=== PATIENT | male | born 1950 | race American Indian/Alaskan Native ===

== ENCOUNTER 2017-03-11 12:50 | Outpatient (CLI) | payer BC ==
[2017-03-11 14:03] LABS: Blood Urea Nitrogen 12 mg/dL (9-20)
--- NOTE | 2017-03-11 15:24 | Cat Scan Report ---
CT NECK WITH CONTRAST: HISTORY: Neck mass. TECHNIQUE: Helical CT following IV contrast. Sagittal and coronal reformatted images. FINDINGS: The parotid and submandibular glands are normal. The carotid sheaths are intact. There is no evidence of adenopathy within the neck. The glottic structures are normal. The airway is patent. Strap musculature is unremarkable. Hyoid bone and thyroid cartilage are intact. IMPRESSION: Unremarkable CT neck. No suspicious mass or adenopathy is identified.
--- NOTE | 2017-03-11 15:26 | Cat Scan Report ---
CT CHEST WITH CONTRAST: HISTORY: Mass. COMPARISON: none. TECHNIQUE: Helical CT in 1.25mm intervals following IV contrast. Sagittal and coronal reformatted images. FINDINGS: Thyroid gland: The right thyroid lobe is normal. The left thyroid lobe is mildly enlarged with an isodense nodule projecting from the inferior pole measuring up to 4.2 cm in maximum diameter. This probably represents a nodule or substernal goiter. No malignant characteristics are appreciated. Tracheobronchial tree: Normal. Esophagus: Normal. Heart: Borderline to mild cardiomegaly. Pericardium: Normal. Mediastinum: Normal. Lung Woody: Normal. Pleural Spaces: Normal. Musculoskeletal: Normal. IMPRESSION: Left thyroid nodule or substernal goiter as described. Please note this is likely an accessible to CT guided or ultrasound-guided biopsy due to location. Borderline to mild cardiomegaly. No suspicious mass or adenopathy is identified.
== END 2017-03-11 12:51 | disposition home or self-care (01) ==
LOC: CT 12:50
PROVIDERS: ATTEND Internal Medicine
DX: E04.9 Nontoxic goiter, unspecified (principal); R22.1 Localized swelling, mass and lump, neck; R22.2 Localized swelling, mass and lump, trunk
CPT/HCPCS: 36415; 70491; 71260; 82565; 84520; Q9967

== ENCOUNTER 2017-09-01 13:44 | Outpatient (CLI) | payer BC ==
--- NOTE | 2017-09-03 10:57 | Magnetic Resonance Report ---
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 Technique: Multisequence, multiplanar MRI without IV gadolinium. Findings: The bone marrow signal is within normal limits throughout the visualized right ankle and foot. No evidence for fracture, bone lesion or osteomyelitis. Minimal degenerative changes are noted in the midfoot. The musculotendinous structures are normal size and signal. No evidence for tendinosis, tenosynovitis or tear. The plantar fascia is intact. No plantar spur. No evidence for joint fluid or soft tissue inflammatory changes. Impression: Unremarkable MR of the right lower extremity.
== END 2017-09-01 13:45 | disposition home or self-care (01) ==
LOC: MRI 13:44
PROVIDERS: ATTEND Podiatrist Foot & Ankle Surgery
DX: I70.201 Unspecified atherosclerosis of native arteries of extremities, right leg (principal); D49.2 Neoplasm of unspecified behavior of bone, soft tissue, and skin; M20.10 Hallux valgus (acquired), unspecified foot; T81.4XXD Infection following a procedure, subsequent encounter; M19.90 Unspecified osteoarthritis, unspecified site